=== PATIENT | female | born 1980 | race Caucasian/White ===

== ENCOUNTER 2020-05-27 19:51 | Emergency (ER) | payer SELFPAY ==
[~2020-05-27] VITALS: Ht 167.6 cm; Wt 63.5 kg
--- NOTE | 2020-05-27 19:51 | NUR ---
RECEIVED IN BED 4 VIA EMS AFTER BEING FOUND WALKING AROUND NEAR [place]. PT IS TRANSIENT. DENIES PAIN OR DISCOMFORT AT THIS TIME AND OFFERS NO COMPLAINTS
[2020-05-27 19:55] VITALS: BP 98/65
[2020-05-27] MEDS ORDERED: NACL 0.9% 1,000 ML IV ONE (20:10)
--- NOTE | 2020-05-27 20:30 | NUR ---
PT REFUSED IV AND IV BOLUS, ERMD AWARE. PROVIDED PT WITH FOOD AND JUICE.
[2020-05-27 20:41] LABS: BASOPHILS # (AUTO) 0.1 K/uL (0.00-0.22); BASOPHILS % (AUTO) 0.7 % (0.0-2.0); EOSINOPHILS # (AUTO) 0.1 K/uL (0-0.4); EOSINOPHILS % (AUTO) 0.7 % (0.0-4.0); HEMATOCRIT 43.1 % (36-48); HEMOGLOBIN 14.4 g/dL (12.0-16.0); LYMPHOCYTES # (AUTO) 3.2 K/uL (2.5-16.5); LYMPHOCYTES % (AUTO) 27.3 % (20.5-51.1); MEAN CORPUSCULAR HEMOGLOBIN 30 pg (27-31); MEAN CORPUSCULAR HGB CONC 33 g/dL (33-37); MEAN CORPUSCULAR VOLUME 88.5 fL (80-94); MONOCYTES # (AUTO) 1.3 K/uL (0.8-1.0); MONOCYTES % (AUTO) 10.8 % (1.7-9.3); NEUTROPHILS # (AUTO) 7.1 K/uL (1.8-7.7); NEUTROPHILS % (AUTO) 60.5 % (42.2-75.2); PLATELET COUNT (AUTO) 252 K/uL (140-450); RED BLOOD CELL COUNT(AUTO) 4.87 MIL/uL (4.20-5.40); RED CELL DISTRIBUTION WIDTH 13.6 % (11.6-13.7); WHITE BLOOD COUNT (AUTO) 11.7 K/uL (4.8-10.8)
[2020-05-27 20:48] LABS: ANION GAP 12.8 (8-16); CREATININE 0.8 mg/dL (0.6-1.3); POTASSIUM 3.8 mmol/L (3.5-5.1)
--- NOTE | 2020-05-27 21:00 | NUR ---
SANDWICH AND ORANGE JUICE GIVEN
--- NOTE | 2020-05-27 21:48 | NUR ---
Patient discharged with v/s stable. Written and verbal after care instructions given and explained. Patient verbalized understanding. Ambulatory with steady gait. All questions addressed prior to discharge. Advised to follow up with PMD. PATIENT IN STABLE CONDITION.
== END 2020-05-27 21:48 | disposition home or self-care (01) ==
LOC: MED 19:51
DX: R53.1 Weakness (principal)
CPT/HCPCS: 36415; 80048; 85025; 99283